=== PATIENT | female | born 1970 | race African-American/Black ===

== ENCOUNTER 2017-05-11 14:07 | Inpatient (IN) | payer OTHER, MEDICAID ==
[~2017-05-11] VITALS: Ht 162.6 cm; Wt 80.6 kg
[~2017-05-11 14:07] MED LIST: ALBU2TAB4; AMLO5TAB2; CLON0.3T; DIAZ-104; HYDR-1421; INSLANTI; PRED5PAK8; PROZAC; QUET50TA; TRAM50TA2; TRAZ50TA2; [UNRECOGNIZED DRUG - OTHER]
[2017-05-11] MEDS ORDERED: PANTOPRAZOLE 40 MG/10 ML VIAL IV STA (14:36)
[2017-05-11] MEDS ORDERED: SODIUM CHLORIDE 0.9% 1,000 ML IVB ONE (14:36)
[2017-05-11] MEDS ORDERED: MORPHINE SULF INJ 2 MG/ML SYRINGE 1ML IV ONE ×2 (14:45→17:45)
[2017-05-11 15:09] LABS: Basophils # (auto) 0 uL; Basophils % (auto) 0.4 % (0.0-2.0); Eosinophils # (auto) 0 uL; Eosinophils % (auto) 0.1 % (0.0-7.0); Hematocrit 43.4 % (36.0-46.0); Hemoglobin 14.6 g/dL (12.2-16.2); Lymphocytes # (auto) 0.8 uL; Lymphocytes % (auto) 6.6 % (10.0-50.0); Mean Corpuscular Hemoglobin 30.1 pg (28.0-32.0); Mean Corpuscular Hgb Conc. 33.6 g/dL (32.0-36.0); Mean Corpuscular Volume 89.8 fL (80.0-100.0); Mean Platelet Volume 7.4 fL (6.9-10.8); Monocytes # (auto) 0.5 uL; Neutrophils # (auto) 10.3 uL; Neutrophils % (auto) 88.9 % (37.0-80.0); Platelet Count (auto) 267 10^3/uL (140-450); White Blood Cell 11.6 10^3/uL (4.4-10.8)
[2017-05-11 15:29] LABS: Albumin 4.3 g/dL (3.4-5.0); Alkaline Phosphatase 43 U/L (45-117); Amylase 78 U/L (25-115); Anion Gap 9 (5-15); Aspartate Aminotransferase 11 U/L (15-37); BUN/Creatinine Ratio 13.5; Bilirubin, Total 1.5 mg/dL (0.2-1.0); Blood Urea Nitrogen 13 mg/dL (7-18); Calcium 8.9 mg/dL (8.5-10.1); Carbon Dioxide 24 mmol/L (21-32); Chloride 102 mmol/L (98-107); GFR African American 80 mL/min; GFR Non-African American 66 mL/min; Glucose 124 mg/dL (74-106); Magnesium 1.8 mg/dL (1.6-2.6); Potassium 3.3 mmol/L (3.5-5.1); Sodium 135 mmol/L (136-145); Total Protein 8.3 g/dL (6.4-8.2)
[2017-05-11] MEDS ORDERED: POTASSIUM CHL 10% (20 MEQ/15ML) 15ml ORAL SOLN PO ONE (16:15)
[2017-05-11] MEDS ORDERED: cefTRIAXone 1GM/10ml IVPUSH 10 ML IV ONE ×2 (16:15→17:00)
[2017-05-11] MEDS ORDERED: ACETAMINOPHEN 500 MG TAB PO PRN (17:00)
[2017-05-11] MEDS ORDERED: TEMAZEPAM 15 MG CAP PO PRN (17:00)
[2017-05-11] MEDS ORDERED: LORazepam 0.5 MG TAB PO PRN (17:00)
[2017-05-11] MEDS ORDERED: MORPHINE SULF INJ 2 MG/ML SYRINGE 1ML IV PRN (17:00)
[2017-05-11] MEDS ORDERED: NITROGLYCERIN 0.4 MG SL TAB SL PRN (17:00)
[2017-05-11] MEDS ORDERED: LABETALOL HCL 5 MG/ML ML 20ML VIAL IV PRN ×3 (17:00)
[2017-05-11] MEDS ORDERED: DEXTROSE (50%) 50ML SYRG IV PRN (17:00)
[2017-05-11] MEDS ORDERED: cloNIDine HCL 0.1 MG TAB PO ONE (17:00)
[2017-05-11] MEDS: PROMETHAZINE HCL 25 MG/ML 1ML IV PRN ×2 (17:20→22:15)
[2017-05-11] MEDS: FAMOTIDINE (10MG/ML) 2ML VL IV SCH (17:20)
[2017-05-11] MEDS: HYDROcodone-ACET 5/325MG TAB PO PRN ×2 (17:27→22:19)
[2017-05-11 17:45] LABS: Urine Bilirubin Negative (Negative); Urine Blood 1+ /uL (Negative); Urine Color Yellow (Yellow); Urine Glucose 2+ mg/dL (Normal); Urine Ketone Negative (Negative); Urine Mucus FEW (None Seen); Urine Nitrite Negative (Negative); Urine RBC 3 /hpf (0 - 4); Urine Squamous Epithelial Cell FEW /hpf (<5); Urine Urobilinogen Normal (Negative)
[2017-05-11] MEDS: InsuLIN REG 1unit/0.01ml Soln (100units/ml) SC SCH (18:00)
[2017-05-11] MEDS: ACCU-CHEK COMFORT CURVE STRIP VI SCH (18:28)
[2017-05-11 21:30] VITALS: BP 110/62
[2017-05-11 22:00] VITALS: BP 110/62
[2017-05-11] MEDS: cloNIDine HCL 0.1 MG TAB PO SCH (22:00)
[2017-05-11] MEDS: DIAZEPAM 5 MG TAB PO SCH (22:25)
[2017-05-11] MEDS: QUEtiapine FUMARATE 25 MG TAB PO SCH (22:25)
[2017-05-11] MEDS: metroNIDAZOLE 500MG/100ML 100 ML IV SCH (22:27)
[2017-05-12] MEDS: traZODone HCL 50 MG TAB PO SCH (01:03)
[2017-05-12] MEDS ORDERED: MORPHINE SULFATE 4 MG/ML SYRG ONE (03:03)
[2017-05-12] MEDS: PROMETHAZINE HCL 25 MG/ML 1ML IV PRN ×5 (03:09→22:16)
[2017-05-12] MEDS: MORPHINE SULF INJ 2 MG/ML SYRINGE 1ML IV PRN ×5 (03:20→22:16)
[2017-05-12] MEDS: FAMOTIDINE (10MG/ML) 2ML VL IV SCH (05:34)
[2017-05-12] MEDS: cloNIDine HCL 0.1 MG TAB PO SCH ×3 (05:37→22:12)
[2017-05-12] MEDS: InsuLIN REG 1unit/0.01ml Soln (100units/ml) SC SCH ×4 (05:37→17:54)
[2017-05-12] MEDS: metroNIDAZOLE 500MG/100ML 100 ML IV SCH ×3 (05:37→22:11)
[2017-05-12] MEDS: ACCU-CHEK COMFORT CURVE STRIP VI SCH ×4 (05:38→17:54)
[2017-05-12 05:40] LABS: Basophils # (auto) 0 uL; Basophils % (auto) 0.5 % (0.0-2.0); Eosinophils # (auto) 0 uL; Eosinophils % (auto) 0.4 % (0.0-7.0); Lymphocytes # (auto) 2.4 uL; Mean Corpuscular Hemoglobin 30.2 pg (28.0-32.0); Mean Corpuscular Hgb Conc. 33.5 g/dL (32.0-36.0); Mean Corpuscular Volume 90.4 fL (80.0-100.0); Mean Platelet Volume 7.7 fL (6.9-10.8); Monocytes # (auto) 0.8 uL; Monocytes % (auto) 9.3 % (0.0-12.0); Neutrophils # (auto) 5.1 uL; Neutrophils % (auto) 60.8 % (37.0-80.0); Nucleated Red Blood Cells % 0.1 %; Platelet Count (auto) 255 10^3/uL (140-450); Red Cell Distribution Width 14.9 % (11.8-14.3); White Blood Cell 8.4 10^3/uL (4.4-10.8)
[2017-05-12 06:00] VITALS: BP 105/71
[2017-05-12 06:11] LABS: Potassium 3.8 mmol/L (3.5-5.1)
[2017-05-12 06:19] LABS: Albumin 3.5 g/dL (3.4-5.0); Bilirubin, Total 0.8 mg/dL (0.2-1.0); Calcium 8.3 mg/dL (8.5-10.1); Total Protein 7.1 g/dL (6.4-8.2)
[2017-05-12] MEDS: amLODIPine BESYLATE 5 MG TAB PO SCH (07:00)
[2017-05-12] MEDS: HYDROcodone-ACET 5/325MG TAB PO PRN ×3 (08:00→20:37)
[2017-05-12 08:27] VITALS: BP 109/61
[2017-05-12] MEDS: cefTRIAXone 1GM/10ml IVPUSH 10 ML IV SCH (09:06)
[2017-05-12] MEDS: FLUoxetine HCL 20 MG CAP PO SCH (09:21)
[2017-05-12] MEDS: DIAZEPAM 5 MG TAB PO SCH ×2 (09:21→22:13)
[2017-05-12 12:35] VITALS: BP 124/76
[2017-05-12] MEDS ORDERED: PANTOPRAZOLE 40 MG TAB PO ONE (15:00)
[2017-05-12 16:24] VITALS: BP 125/65
[2017-05-12 20:00] VITALS: BP 146/82
[2017-05-12 21:56] VITALS: BP 146/82
[2017-05-12] MEDS: QUEtiapine FUMARATE 25 MG TAB PO SCH (22:13)
[2017-05-12] MEDS: PANTOPRAZOLE 40 MG TAB PO SCH (22:13)
[2017-05-13] MEDS: traZODone HCL 50 MG TAB PO SCH ×2 (00:20→21:51)
[2017-05-13] MEDS: ACCU-CHEK COMFORT CURVE STRIP VI SCH ×3 (00:23→12:06)
[2017-05-13] MEDS: PROMETHAZINE HCL 25 MG/ML 1ML IV PRN ×5 (03:02→20:36)
[2017-05-13] MEDS: MORPHINE SULF INJ 2 MG/ML SYRINGE 1ML IV PRN ×5 (03:08→20:36)
[2017-05-13 04:59] VITALS: BP 106/61
[2017-05-13] MEDS: metroNIDAZOLE 500MG/100ML 100 ML IV SCH ×2 (05:56→14:00)
[2017-05-13] MEDS: cloNIDine HCL 0.1 MG TAB PO SCH ×3 (05:56→22:00)
[2017-05-13] MEDS: InsuLIN REG 1unit/0.01ml Soln (100units/ml) SC SCH ×3 (06:00→12:00)
[2017-05-13 06:03] LABS: Basophils # (auto) 0 uL; Basophils % (auto) 0.7 % (0.0-2.0); Eosinophils # (auto) 0.1 uL; Eosinophils % (auto) 1.1 % (0.0-7.0); Hematocrit 35.8 % (36.0-46.0); Lymphocytes # (auto) 3.2 uL; Lymphocytes % (auto) 49.6 % (10.0-50.0); Mean Corpuscular Hgb Conc. 33.5 g/dL (32.0-36.0); Mean Corpuscular Volume 89.6 fL (80.0-100.0); Mean Platelet Volume 7.4 fL (6.9-10.8); Monocytes # (auto) 0.8 uL; Monocytes % (auto) 11.7 % (0.0-12.0); Neutrophils # (auto) 2.4 uL; Neutrophils % (auto) 36.9 % (37.0-80.0); Platelet Count (auto) 218 10^3/uL (140-450); Red Cell Distribution Width 14.8 % (11.8-14.3); White Blood Cell 6.5 10^3/uL (4.4-10.8)
[2017-05-13 06:18] LABS: BUN/Creatinine Ratio 14.1; Calcium 8.2 mg/dL (8.5-10.1); Potassium 3.4 mmol/L (3.5-5.1)
[2017-05-13] MEDS: HYDROcodone-ACET 5/325MG TAB PO PRN ×2 (06:20→13:50)
[2017-05-13] MEDS: amLODIPine BESYLATE 5 MG TAB PO SCH (06:32)
[2017-05-13] MEDS ORDERED: MORPHINE SULFATE 4 MG/ML SYRG ONE (07:47)
[2017-05-13 08:30] VITALS: BP 108/62
[2017-05-13] MEDS: DIAZEPAM 5 MG TAB PO SCH ×2 (09:17→21:51)
[2017-05-13] MEDS: cefTRIAXone 1GM/10ml IVPUSH 10 ML IV SCH (09:17)
[2017-05-13] MEDS: PANTOPRAZOLE 40 MG TAB PO SCH ×2 (09:17→21:51)
[2017-05-13] MEDS: FLUoxetine HCL 20 MG CAP PO SCH (09:17)
[2017-05-13 12:42] VITALS: BP 110/68
[2017-05-13] MEDS ORDERED: CARI-277 PO (14:51)
[2017-05-13] MEDS ORDERED: HYDR-4683 PO (14:51)
[2017-05-13] MEDS ORDERED: LISI10TA6 PO (14:51)
[2017-05-13] MEDS ORDERED: ALUMSUS OR (14:51)
[2017-05-13] MEDS ORDERED: MORP-110 PO (14:51)
[2017-05-13] MEDS ORDERED: INSUINJ2 SC ×2 (14:51)
[2017-05-13] MEDS ORDERED: DIAZ2TAB PO (14:51)
[2017-05-13 16:52] VITALS: BP 110/62
[2017-05-13] MEDS: QUEtiapine FUMARATE 25 MG TAB PO SCH (21:51)
[2017-05-13 22:00] VITALS: BP 123/71
[2017-05-14] MEDS: PROMETHAZINE HCL 25 MG/ML 1ML IV PRN ×6 (01:02→21:18)
[2017-05-14] MEDS: MORPHINE SULF INJ 2 MG/ML SYRINGE 1ML IV PRN ×7 (01:03→21:19)
[2017-05-14] MEDS: HYDROcodone-ACET 5/325MG TAB PO PRN ×3 (02:57→18:37)
[2017-05-14 05:00] VITALS: BP 138/68
[2017-05-14] MEDS: cloNIDine HCL 0.1 MG TAB PO SCH ×3 (06:00→22:10)
[2017-05-14] MEDS: amLODIPine BESYLATE 5 MG TAB PO SCH (06:40)
[2017-05-14] MEDS: DIAZEPAM 5 MG TAB PO SCH ×2 (09:56→22:09)
[2017-05-14] MEDS: FLUoxetine HCL 20 MG CAP PO SCH (09:56)
[2017-05-14] MEDS: PANTOPRAZOLE 40 MG TAB PO SCH ×2 (09:56→22:11)
[2017-05-14 10:14] VITALS: BP 133/62
[2017-05-14 12:52] VITALS: BP 129/78
[2017-05-14] MEDS: CARISOPRODOL 350 MG TAB PO PRN ×2 (13:23→23:39)
[2017-05-14] MEDS ORDERED: SIMV10TA73 PO (13:39)
[2017-05-14 17:21] VITALS: BP 145/79
[2017-05-14 19:27] VITALS: BP 145/79
[2017-05-14 20:00] VITALS: BP 140/85
[2017-05-14] MEDS ORDERED: ATORVASTATIN 20 MG TAB PO SCH (22:00)
[2017-05-14] MEDS: traZODone HCL 50 MG TAB PO SCH (22:10)
[2017-05-14] MEDS: QUEtiapine FUMARATE 25 MG TAB PO SCH (22:11)
[2017-05-15] MEDS: HYDROcodone-ACET 5/325MG TAB PO PRN ×3 (00:40→08:52)
[2017-05-15] MEDS: MORPHINE SULF INJ 2 MG/ML SYRINGE 1ML IV PRN ×2 (02:48→07:00)
[2017-05-15] MEDS: PROMETHAZINE HCL 25 MG/ML 1ML IV PRN ×2 (02:48→06:59)
[2017-05-15 05:00] VITALS: BP 127/51
[2017-05-15] MEDS: cloNIDine HCL 0.1 MG TAB PO SCH ×2 (06:00→13:34)
[2017-05-15] MEDS: ALBUTEROL SULF 2.5 MG/0.5ML(0.5%) NEB SOLN NEB PRN ×2 (06:43→11:29)
[2017-05-15] MEDS: amLODIPine BESYLATE 5 MG TAB PO SCH (06:44)
[2017-05-15 06:52] LABS: INR 1.15 (0.9-1.15); Partial Thromboplastin Time 26.2 sec (22.64-33.71); Prothrombin Time 12.6 sec (9.37-12.3)
[2017-05-15] MEDS ORDERED: LIDOCAINE VISCOUS 2% 15ML UD ONE (08:39)
[2017-05-15] MEDS ORDERED: diphenhdrAMINE HCL 50 MG/1 ML VL ONE (08:39)
[2017-05-15] MEDS ORDERED: SODIUM CHLORIDE LOCK 10 ML ONE (08:39)
[2017-05-15 09:00] VITALS: BP_SYST 102; BP_SYST 134; BP_DIAS 49; BP_DIAS 83
[2017-05-15] MEDS: PANTOPRAZOLE 40 MG TAB PO SCH (10:00)
[2017-05-15] MEDS: MIDAZOLAM HCL 5 MG/ML-1ML VIAL ONE ×2 (10:06→10:09)
[2017-05-15] MEDS: fentaNYL CITRATE 100 MCG/2 ML VL ONE ×2 (10:06→10:09)
[2017-05-15] MEDS: FLUoxetine HCL 20 MG CAP PO SCH (11:24)
[2017-05-15] MEDS: DIAZEPAM 5 MG TAB PO SCH (11:24)
[2017-05-15 12:49] VITALS: BP 114/69
[2017-05-15 13:00] VITALS: BP 114/69
[2017-05-15 13:15] VITALS: BP 114/69
[2017-05-15] MEDS ORDERED: METOCLOPRAMIDE HCL 5MG/ml INJ 2ml VIAL IV SCH (14:00)
== END 2017-05-15 15:18 | disposition home or self-care (01) | DRG 74 ==
LOC: EDBD 14:07 → ER 14:20 → TELE 14:21 → TELE-WESTW 21:15 → WEST WING 05-13 15:30
PROVIDERS: ADMIT Internal Medicine; ATTEND Family Medicine
PROC: 0DJ08ZZ Inspection of Upper Intestinal Tract, Via Natural or Artificial Opening Endoscopic (ICD-10-PCS; principal; 2017-05-15 10:03)
DX: E11.43 Type 2 diabetes mellitus with diabetic autonomic (poly)neuropathy (principal); E87.1 Hypo-osmolality and hyponatremia; K46.9 Unspecified abdominal hernia without obstruction or gangrene; K31.84 Gastroparesis; E78.00 Pure hypercholesterolemia, unspecified; D72.829 Elevated white blood cell count, unspecified; I16.0 Hypertensive urgency; E86.0 Dehydration; E87.6 Hypokalemia; F41.9 Anxiety disorder, unspecified; I10 Essential (primary) hypertension; F32.9 Major depressive disorder, single episode, unspecified; M54.9 Dorsalgia, unspecified; G89.29 Other chronic pain; F17.210 Nicotine dependence, cigarettes, uncomplicated; F12.90 Cannabis use, unspecified, uncomplicated; I70.0 Atherosclerosis of aorta; K21.9 Gastro-esophageal reflux disease without esophagitis; E78.5 Hyperlipidemia, unspecified; J45.909 Unspecified asthma, uncomplicated; Z72.89 Other problems related to lifestyle; Z83.3 Family history of diabetes mellitus; Z88.5 Allergy status to narcotic agent; Z82.49 Family history of ischemic heart disease and other diseases of the circulatory system
CPT/HCPCS: 36415; 43235; 71010; 74176; 80048; 80053; 80307; 80320; 81001; 82150; 82962; 83036; 83690; 83735; 84484; 84702; 85025; 85610; 85652; 85730; 86141; 87493; 94640; 96361; 96365; 96375; 99291; C9113; J2250; J3490

== ENCOUNTER 2017-06-09 11:56 | Emergency (ER) | payer OTHER, MEDICAID ==
[~2017-06-09] VITALS: Ht 162.6 cm; Wt 82.6 kg
[~2017-06-09 11:56] MED LIST changes: +ALUMSUS OR; -AMLO5TAB2; +CARI-277 PO; -CLON0.3T; -DIAZ-104; +DIAZ2TAB PO; +HYDR-4683 PO; +INSUINJ2 SC; +LISI10TA6 PO; +MORP-110 PO; -PRED5PAK8; -PROZAC; +SIMV10TA73 PO; -TRAM50TA2; -[UNRECOGNIZED DRUG - OTHER]
[2017-06-09 12:36] VITALS: BP 143/86
== END 2017-06-09 13:11 | disposition home or self-care (01) ==
LOC: ER 11:56
DX: I10 Essential (primary) hypertension (principal); G89.29 Other chronic pain; M54.5 Low back pain; E11.9 Type 2 diabetes mellitus without complications; E78.5 Hyperlipidemia, unspecified; F17.210 Nicotine dependence, cigarettes, uncomplicated; F12.10 Cannabis abuse, uncomplicated; F15.10 Other stimulant abuse, uncomplicated; Z79.4 Long term (current) use of insulin; Z76.0 Encounter for issue of repeat prescription; Z88.6 Allergy status to analgesic agent

== ENCOUNTER 2017-06-12 12:10 | Emergency (ER) | payer OTHER, MEDICAID ==
[2017-06-12] MEDS ORDERED: cloNIDine HCL 0.1 MG TAB ONE (12:21)
[2017-06-12] MEDS ORDERED: cloNIDine HCL 0.1 MG TAB PO ONE ×2 (12:30→16:15)
[2017-06-12 13:19] LABS: Basophils # (auto) 0.1 uL; Basophils % (auto) 0.9 % (0.0-2.0); Eosinophils # (auto) 0 uL; Hematocrit 46.1 % (36.0-46.0); Hemoglobin 15.4 g/dL (12.2-16.2); Lymphocytes # (auto) 1.7 uL; Lymphocytes % (auto) 12.1 % (10.0-50.0); Mean Corpuscular Hgb Conc. 33.5 g/dL (32.0-36.0); Mean Corpuscular Volume 89.6 fL (80.0-100.0); Monocytes # (auto) 0.4 uL; Neutrophils # (auto) 11.5 uL; Platelet Count (auto) 336 10^3/uL (140-450); Red Blood Cells 5.14 10^6/uL (4.0-5.20); White Blood Cell 13.7 10^3/uL (4.4-10.8)
[2017-06-12] MEDS ORDERED: SODIUM CHLORIDE 0.9% 1,000 ML IV ONE ×2 (13:34)
[2017-06-12] MEDS ORDERED: cefTRIAXone 1GM/10ml IVPUSH 10 ML IV ONE (13:45)
[2017-06-12 13:50] LABS: Albumin 4.7 g/dL (3.4-5.0); Bilirubin, Total 0.8 mg/dL (0.2-1.0); Calcium 9.3 mg/dL (8.5-10.1); Potassium 3.6 mmol/L (3.5-5.1); Total Protein 9.3 g/dL (6.4-8.2)
[2017-06-12] MEDS ORDERED: ONDANSETRON HCL 4 MG/2 ML VIAL IV ONE (16:00)
[2017-06-12 16:02] VITALS: BP 192/105
[2017-06-12] MEDS ORDERED: HYDROcodone-ACET 10/325MG TAB PO ONE (16:15)
== END 2017-06-12 16:45 | disposition home or self-care (01) ==
LOC: EDBD 12:10 → ER 12:10
DX: K52.9 Noninfective gastroenteritis and colitis, unspecified (principal); K43.9 Ventral hernia without obstruction or gangrene; E11.9 Type 2 diabetes mellitus without complications; I10 Essential (primary) hypertension; E78.5 Hyperlipidemia, unspecified; F17.210 Nicotine dependence, cigarettes, uncomplicated; F12.10 Cannabis abuse, uncomplicated; F15.10 Other stimulant abuse, uncomplicated
CPT/HCPCS: 36415; 74176; 80053; 84702; 85025; 87040; 96361; 96374; 96375; 99285; J2405; J7030

== ENCOUNTER 2017-06-13 16:29 | Emergency (ER) | payer OTHER, MEDICAID ==
[~2017-06-13] VITALS: Ht 162.6 cm; Wt 79.4 kg
[2017-06-13 16:56] VITALS: BP 183/108
== END 2017-06-13 23:23 | disposition home or self-care (01) ==
LOC: ER 16:29
DX: I10 Essential (primary) hypertension (principal); R11.2 Nausea with vomiting, unspecified; E11.9 Type 2 diabetes mellitus without complications; E78.5 Hyperlipidemia, unspecified; F17.210 Nicotine dependence, cigarettes, uncomplicated; Z88.6 Allergy status to analgesic agent

== ENCOUNTER 2017-08-28 13:34 | Inpatient (IN) | payer OTHER, MEDICAID ==
[~2017-08-28] VITALS: Ht 162.6 cm; Wt 84.3 kg
[2017-08-28] MEDS ORDERED: PANTOPRAZOLE 40 MG/10 ML VIAL IV ONE ×2 (14:15→17:00)
[2017-08-28] MEDS ORDERED: SODIUM CHLORIDE 0.9% 1,000 ML IV ONE (14:15)
[2017-08-28 15:05] LABS: Basophils # (auto) 0.1 uL; Basophils % (auto) 0.5 % (0.0-2.0); Eosinophils # (auto) 0 uL; Hematocrit 50.5 % (36.0-46.0); Lymphocytes # (auto) 2.4 uL; Lymphocytes % (auto) 17.2 % (10.0-50.0); Mean Corpuscular Hemoglobin 30.4 pg (28.0-32.0); Mean Corpuscular Hgb Conc. 33.8 g/dL (32.0-36.0); Mean Corpuscular Volume 89.9 fL (80.0-100.0); Monocytes # (auto) 1.3 uL; Monocytes % (auto) 9.2 % (0.0-12.0); Neutrophils % (auto) 73.1 % (37.0-80.0); Nucleated Red Blood Cells % 0.1 %; Platelet Count (auto) 317 10^3/uL (140-450); Red Blood Cells 5.61 10^6/uL (4.0-5.20); Red Cell Distribution Width 14.1 % (11.8-14.3); White Blood Cell 13.7 10^3/uL (4.4-10.8)
[2017-08-28] MEDS ORDERED: ONDANSETRON HCL 4 MG/2 ML VIAL ONE (15:24)
[2017-08-28] MEDS ORDERED: ONDANSETRON HCL 4 MG/2 ML VIAL IV ONE (15:30)
[2017-08-28 15:31] LABS: Albumin 4.3 g/dL (3.4-5.0); BUN/Creatinine Ratio 10.2; Bilirubin, Total 1.5 mg/dL (0.2-1.0); Calcium 9.1 mg/dL (8.5-10.1); Potassium 3.3 mmol/L (3.5-5.1); Total Protein 8.8 g/dL (6.4-8.2)
[2017-08-28] MEDS ORDERED: POTASSIUM CHL 20 Meq TABLET PO ONE (16:00)
[2017-08-28] MEDS ORDERED: PROCHLORPERAZINE EDISYLATE 5 MG/ML 2ML VIAL IV ONE (16:15)
[2017-08-28] MEDS ORDERED: MORPHINE SULFATE 4 MG/ML SYR/VIAL IV ONE (16:15)
[2017-08-28] MEDS ORDERED: cloNIDine HCL 0.1 MG TAB PO ONE (16:15)
[2017-08-28 16:19] LABS: Urine Bacteria MANY /hpf (None Seen); Urine Blood 2+ /uL (Negative); Urine WBC 43 /hpf (0 - 5)
[2017-08-28 16:25] LABS: Alcohol, Urine < 3.0 mg/dL (0-5); Amphetamine Screen, Urine NEGATIVE (NEGATIVE); Barbiturate Scree,Urine NEGATIVE (NEGATIVE); Benzodiazephine Screen, Urine POSITIVE (NEGATIVE); Cannabinoid Screen, Urine POSITIVE (NEGATIVE); Cocaine Screen, Urine NEGATIVE (NEGATIVE); Phencyclidine Screen, Urine NEGATIVE (NEGATIVE)
[2017-08-28] MEDS ORDERED: CARISOPRODOL 350 MG TAB PO PRN (16:45)
[2017-08-28] MEDS ORDERED: ACETAMINOPHEN 325 MG TAB PO PRN (16:45)
[2017-08-28] MEDS ORDERED: TEMAZEPAM 15 MG CAP PO PRN (16:45)
[2017-08-28] MEDS ORDERED: SODIUM CHLORIDE 0.9% 2,000 ML IV ONE (16:45)
[2017-08-28] MEDS ORDERED: MORPHINE SULFATE 4 MG/ML SYR/VIAL IV PRN (16:45)
[2017-08-28] MEDS ORDERED: NITROGLYCERIN 0.4 MG SL TAB SL PRN (16:45)
[2017-08-28 16:58] LABS: Opiate Scree,Urine POSITIVE (NEGATIVE)
[2017-08-28] MEDS ORDERED: cefTRIAXone 1GM/10ml IVPUSH 10 ML IV ONE (17:00)
[2017-08-28 17:45] VITALS: BP 115/92
[2017-08-28] MEDS ORDERED: LABETALOL HCL 5 MG/ML ML 20ML VIAL IV PRN (20:15)
[2017-08-28] MEDS: SODIUM CHLORIDE 0.9% 1,000 ML IV SCH (20:25)
[2017-08-28] MEDS: DIAZEPAM 2 MG TAB PO PRN (20:26)
[2017-08-28 21:37] VITALS: BP 110/81
[2017-08-28] MEDS: traZODone HCL 50 MG TAB PO SCH (22:00)
[2017-08-28] MEDS: metroNIDAZOLE 500MG/100ML 100 ML IV SCH (22:02)
[2017-08-28] MEDS: ATORVASTATIN 20 MG TAB PO SCH (22:04)
[2017-08-28] MEDS: QUEtiapine FUMARATE 25 MG TAB PO SCH (22:05)
[2017-08-28] MEDS: MORPHINE SULF 30 mg ER tab PO SCH (22:05)
[2017-08-28] MEDS: ONDANSETRON HCL 4 MG/2 ML VIAL IV PRN (22:28)
[2017-08-28] MEDS: INSULIN NPH Isophane (HUMAN) 1unit/0.01ml Susp(100units/ml) SC SCH (22:44)
[2017-08-29] MEDS: ALBUTEROL SULF 2.5 MG/0.5ML(0.5%) NEB SOLN NEB SCH ×3 (01:34→11:38)
[2017-08-29] MEDS: ONDANSETRON HCL 4 MG/2 ML VIAL IV PRN ×4 (04:12→22:22)
[2017-08-29] MEDS: DIAZEPAM 2 MG TAB PO PRN (04:14)
[2017-08-29] MEDS: SODIUM CHLORIDE 0.9% 1,000 ML IV SCH (04:26)
[2017-08-29 05:34] VITALS: BP 110/77
[2017-08-29 05:40] LABS: Basophils # (auto) 0.1 uL; Basophils % (auto) 0.9 % (0.0-2.0); Eosinophils # (auto) 0 uL; Eosinophils % (auto) 0.3 % (0.0-7.0); Hematocrit 45.3 % (36.0-46.0); Hemoglobin 15.4 g/dL (12.2-16.2); Lymphocytes # (auto) 4.2 uL; Lymphocytes % (auto) 39.8 % (10.0-50.0); Mean Corpuscular Hemoglobin 30.6 pg (28.0-32.0); Mean Corpuscular Volume 90.2 fL (80.0-100.0); Neutrophils # (auto) 5.1 uL; Nucleated Red Blood Cells % 0.1 %; Platelet Count (auto) 271 10^3/uL (140-450); Red Blood Cells 5.03 10^6/uL (4.0-5.20); White Blood Cell 10.4 10^3/uL (4.4-10.8)
[2017-08-29 05:45] LABS: Albumin 3.4 g/dL (3.4-5.0); BUN/Creatinine Ratio 11.1; Bilirubin, Total 1.2 mg/dL (0.2-1.0); Calcium 8.1 mg/dL (8.5-10.1); Potassium 3.3 mmol/L (3.5-5.1); Total Protein 6.8 g/dL (6.4-8.2)
[2017-08-29] MEDS: metroNIDAZOLE 500MG/100ML 100 ML IV SCH ×3 (06:50→22:05)
[2017-08-29] MEDS: INSULIN NPH Isophane (HUMAN) 1unit/0.01ml Susp(100units/ml) SC SCH ×2 (07:05→22:00)
[2017-08-29 08:55] VITALS: BP 110/77
[2017-08-29 09:00] VITALS: BP 118/62
[2017-08-29] MEDS: MORPHINE SULF 30 mg ER tab PO SCH ×2 (09:06→22:06)
[2017-08-29] MEDS: MULTIPLE VITAMIN TAB PO SCH (09:06)
[2017-08-29] MEDS: cefTRIAXone 1GM/10ml IVPUSH 10 ML IV SCH (09:06)
[2017-08-29] MEDS: QUEtiapine FUMARATE 25 MG TAB PO SCH ×2 (09:07→22:07)
[2017-08-29] MEDS: LISINOPRIL 10 MG TAB PO SCH (09:08)
[2017-08-29] MEDS ORDERED: PANTOPRAZOLE 40 MG/10 ML VIAL IV SCH (10:00)
[2017-08-29] MEDS ORDERED: FAMOTIDINE 20 MG TAB PO SCH (10:00)
[2017-08-29] MEDS ORDERED: SOD CHL 0.9%/ KCL 40MEQ 1,000 ML IV ONE (12:00)
[2017-08-29 13:00] VITALS: BP 114/76
[2017-08-29] MEDS: HYDROcodone-ACET 5/325MG TAB PO PRN ×3 (13:47→23:20)
[2017-08-29] MEDS: METOCLOPRAMIDE HCL 10 MG TAB PO SCH ×2 (14:33→22:06)
[2017-08-29] MEDS: PANTOPRAZOLE 40 MG TAB PO SCH ×2 (14:33→22:07)
[2017-08-29 17:00] VITALS: BP_SYST 117; BP_SYST 121; BP_DIAS 76
[2017-08-29] MEDS ORDERED: ALBUTEROL SULF 2.5 MG/0.5ML(0.5%) NEB SOLN NEB PRN (18:00)
[2017-08-29] MEDS: ATORVASTATIN 20 MG TAB PO SCH (22:06)
[2017-08-29] MEDS: traZODone HCL 50 MG TAB PO SCH (22:06)
[2017-08-30] MEDS: ONDANSETRON HCL 4 MG/2 ML VIAL IV PRN ×2 (04:45→10:05)
[2017-08-30] MEDS: HYDROcodone-ACET 5/325MG TAB PO PRN (04:45)
[2017-08-30] MEDS: metroNIDAZOLE 500MG/100ML 100 ML IV SCH ×2 (06:17→14:00)
[2017-08-30] MEDS: INSULIN NPH Isophane (HUMAN) 1unit/0.01ml Susp(100units/ml) SC SCH (06:42)
[2017-08-30] MEDS ORDERED: METO10TA3 PO (08:58)
[2017-08-30] MEDS ORDERED: PANT40T PO (08:58)
[2017-08-30 09:00] VITALS: BP 127/66
[2017-08-30] MEDS: METOCLOPRAMIDE HCL 10 MG TAB PO SCH (09:59)
[2017-08-30] MEDS: MORPHINE SULF 30 mg ER tab PO SCH (09:59)
[2017-08-30] MEDS: MULTIPLE VITAMIN TAB PO SCH (10:00)
[2017-08-30] MEDS: QUEtiapine FUMARATE 25 MG TAB PO SCH (10:00)
[2017-08-30] MEDS: PANTOPRAZOLE 40 MG TAB PO SCH (10:00)
[2017-08-30] MEDS: LISINOPRIL 10 MG TAB PO SCH (10:01)
[2017-08-30] MEDS: cefTRIAXone 1GM/10ml IVPUSH 10 ML IV SCH (10:05)
[2017-08-30 13:00] VITALS: BP 132/70
[2017-08-30] MEDS ORDERED: metroNIDAZOLE 500 MG TAB PO ONE (13:45)
[2017-08-30 15:04] VITALS: BP 132/70
== END 2017-08-30 16:55 | disposition home or self-care (01) | DRG 73 ==
LOC: ER 13:34 → OVERFLOW 13:35 → TELE-WESTW 17:44 → WEST WING 08-29 12:19
PROVIDERS: ADMIT Internal Medicine; ATTEND Internal Medicine
DX: E11.43 Type 2 diabetes mellitus with diabetic autonomic (poly)neuropathy (principal); N17.0 Acute kidney failure with tubular necrosis; E11.21 Type 2 diabetes mellitus with diabetic nephropathy; D75.1 Secondary polycythemia; E11.22 Type 2 diabetes mellitus with diabetic chronic kidney disease; E11.65 Type 2 diabetes mellitus with hyperglycemia; E87.1 Hypo-osmolality and hyponatremia; N39.0 Urinary tract infection, site not specified; F11.20 Opioid dependence, uncomplicated; K52.9 Noninfective gastroenteritis and colitis, unspecified; K31.84 Gastroparesis; E78.5 Hyperlipidemia, unspecified; E86.0 Dehydration; E87.6 Hypokalemia; F17.210 Nicotine dependence, cigarettes, uncomplicated; F32.9 Major depressive disorder, single episode, unspecified; G89.29 Other chronic pain; I12.9 Hypertensive chronic kidney disease with stage 1 through stage 4 chronic kidney disease, or unspecified chronic kidney disease; K21.9 Gastro-esophageal reflux disease without esophagitis; N18.3 Chronic kidney disease, stage 3 (moderate); F12.90 Cannabis use, unspecified, uncomplicated; Z83.3 Family history of diabetes mellitus; Z88.5 Allergy status to narcotic agent; Z82.49 Family history of ischemic heart disease and other diseases of the circulatory system
CPT/HCPCS: 36415; 71045; 74176; 76705; 80053; 80307; 80320; 81001; 82962; 83690; 85025; 87045; 87086; 87493; 87899; 93005; 94640; 94761; 96361; 96374; 96375; C9113; J1815; J2405; J3490

== ENCOUNTER 2017-10-17 11:12 | Inpatient (IN) | payer OTHER, MEDICAID ==
[~2017-10-17] VITALS: Ht 162.6 cm; Wt 83.7 kg
[~2017-10-17 11:12] MED LIST changes: -HYDR-1421; +METO10TA3 PO; +PANT40T PO
[2017-10-17] MEDS ORDERED: SODIUM CHLORIDE 0.9% 1,000 ML IVB ONE (11:36)
[2017-10-17] MEDS ORDERED: PANTOPRAZOLE 40 MG/10 ML VIAL IV STA (11:36)
[2017-10-17] MEDS ORDERED: METOCLOPRAMIDE HCL 5MG/ml INJ 2ml VIAL IV ONE (11:45)
[2017-10-17] MEDS ORDERED: MORPHINE SULFATE 4 MG/ML SYR/VIAL IV ONE (11:45)
[2017-10-17 13:23] LABS: Basophils # (auto) 0.1 uL; Basophils % (auto) 0.8 % (0.0-2.0); Eosinophils # (auto) 0 uL; Hematocrit 47.2 % (36.0-46.0); Hemoglobin 15.8 g/dL (12.2-16.2); Lymphocytes # (auto) 2.5 uL; Mean Corpuscular Hemoglobin 29.9 pg (28.0-32.0); Mean Corpuscular Hgb Conc. 33.5 g/dL (32.0-36.0); Mean Corpuscular Volume 89.2 fL (80.0-100.0); Monocytes # (auto) 0.4 uL; Monocytes % (auto) 3.6 % (0.0-12.0); Neutrophils # (auto) 7.8 uL; Neutrophils % (auto) 72.6 % (37.0-80.0); Nucleated Red Blood Cells % 0.1 %; Platelet Count (auto) 293 10^3/uL (140-450); Red Cell Distribution Width 14.5 % (11.8-14.3); White Blood Cell 10.8 10^3/uL (4.4-10.8)
[2017-10-17 13:35] LABS: Alanine Aminotransferase 28 U/L (13-56); Albumin 4.5 g/dL (3.4-5.0); Amylase 46 U/L (25-115); Anion Gap 11 (5-15); Aspartate Aminotransferase 9 U/L (15-37); BUN/Creatinine Ratio 11.3; Blood Urea Nitrogen 11 mg/dL (7-18); Calcium 9.5 mg/dL (8.5-10.1); Carbon Dioxide 24 mmol/L (21-32); Chloride 104 mmol/L (98-107); GFR African American 79 mL/min; GFR Non-African American 65 mL/min; Glucose 211 mg/dL (74-106); Lipase 119 U/L (73-393); Potassium 3.1 mmol/L (3.5-5.1); Sodium 139 mmol/L (136-145)
[2017-10-17 13:40] LABS: Alkaline Phosphatase 59 U/L (45-117); Bilirubin, Total 0.7 mg/dL (0.2-1.0); Total Protein 9.1 g/dL (6.4-8.2)
[2017-10-17] MEDS ORDERED: DEXTROSE (50%) 50ML SYRG IV PRN (16:00)
[2017-10-17] MEDS: SODIUM CHLORIDE 0.9% 1,000 ML IV SCH (16:10)
[2017-10-17] MEDS ORDERED: DIAZEPAM 2 MG TAB PO PRN (16:15)
[2017-10-17] MEDS ORDERED: PANTOPRAZOLE 40 MG TAB PO ONE (16:15)
[2017-10-17] MEDS ORDERED: ALUM & MAG HYDROX-SIMETH LIQ(MAALOX) 30 ML PO PRN (16:15)
[2017-10-17] MEDS ORDERED: ACETAMINOPHEN 325 MG TAB PO PRN (16:15)
[2017-10-17] MEDS ORDERED: POTASSIUM CHLORIDE 8 MEQ TAB PO ONE (16:15)
[2017-10-17] MEDS: METOCLOPRAMIDE HCL 10 MG TAB PO SCH ×2 (17:00→22:09)
[2017-10-17] MEDS: InsuLIN REG 1unit/0.01ml Soln (100units/ml) SC SCH ×2 (17:00→22:00)
[2017-10-17] MEDS: ACCU-CHEK COMFORT CURVE STRIP VI SCH ×2 (17:00→22:11)
[2017-10-17] MEDS: ALBUTEROL SULF 2 MG/5ML ORAL SYRUP PO SCH (18:00)
[2017-10-17] MEDS: ONDANSETRON HCL 4 MG/2 ML VIAL IV PRN ×3 (18:54→21:26)
[2017-10-17 21:33] VITALS: BP 198/94
[2017-10-17 22:03] VITALS: BP 198/94
[2017-10-17] MEDS: QUEtiapine FUMARATE 25 MG TAB PO SCH (22:08)
[2017-10-17] MEDS: ATORVASTATIN 20 MG TAB PO SCH (22:08)
[2017-10-17] MEDS: MORPHINE SULF 30 mg ER tab PO SCH (22:09)
[2017-10-17] MEDS: CARISOPRODOL 350 MG TAB PO SCH (22:09)
[2017-10-17] MEDS: FAMOTIDINE 20 MG TAB PO SCH (22:10)
[2017-10-17] MEDS: HYDROcodone-ACET 5/325MG TAB PO PRN (22:10)
[2017-10-17] MEDS: traZODone HCL 50 MG TAB PO SCH (22:10)
[2017-10-17] MEDS: INSULIN LANTUS (GLARGINE) 1 /0.01ml (100units/ml) SC SCH (22:10)
[2017-10-18] MEDS: SODIUM CHLORIDE 0.9% 1,000 ML IV SCH ×3 (00:30→17:10)
[2017-10-18] MEDS: ONDANSETRON HCL 4 MG/2 ML VIAL IV PRN ×3 (02:24→22:01)
[2017-10-18] MEDS: TEMAZEPAM 15 MG CAP PO PRN (02:24)
[2017-10-18] MEDS: HYDROcodone-ACET 5/325MG TAB PO PRN ×4 (02:24→22:01)
[2017-10-18 05:04] VITALS: BP 126/71
[2017-10-18 05:56] LABS: Basophils # (auto) 0 uL; Basophils % (auto) 0.3 % (0.0-2.0); Eosinophils # (auto) 0 uL; Hematocrit 40.9 % (36.0-46.0); Hemoglobin 13.8 g/dL (12.2-16.2); Lymphocytes # (auto) 2.2 uL; Lymphocytes % (auto) 14.9 % (10.0-50.0); Mean Corpuscular Hemoglobin 29.8 pg (28.0-32.0); Mean Corpuscular Hgb Conc. 33.9 g/dL (32.0-36.0); Monocytes # (auto) 1.1 uL; Monocytes % (auto) 7.7 % (0.0-12.0); Neutrophils # (auto) 11.3 uL; Neutrophils % (auto) 77.1 % (37.0-80.0); Platelet Count (auto) 238 10^3/uL (140-450); Red Blood Cells 4.64 10^6/uL (4.0-5.20); Red Cell Distribution Width 14.3 % (11.8-14.3); White Blood Cell 14.7 10^3/uL (4.4-10.8)
[2017-10-18 06:07] LABS: BUN/Creatinine Ratio 9.9; Calcium 8.5 mg/dL (8.5-10.1); Potassium 3.3 mmol/L (3.5-5.1); Total Protein 7.5 g/dL (6.4-8.2)
[2017-10-18] MEDS: ACCU-CHEK COMFORT CURVE STRIP VI SCH ×4 (06:18→22:01)
[2017-10-18] MEDS: INSULIN LANTUS (GLARGINE) 1 /0.01ml (100units/ml) SC SCH ×2 (06:18→22:01)
[2017-10-18] MEDS: InsuLIN REG 1unit/0.01ml Soln (100units/ml) SC SCH ×4 (06:19→22:00)
[2017-10-18] MEDS: ALBUTEROL SULF 2 MG/5ML ORAL SYRUP PO SCH ×4 (06:22→18:05)
[2017-10-18] MEDS: METOCLOPRAMIDE HCL 10 MG TAB PO SCH ×4 (06:22→22:00)
[2017-10-18 07:46] VITALS: BP 157/70
[2017-10-18 08:00] VITALS: BP 157/70
[2017-10-18] MEDS: CARISOPRODOL 350 MG TAB PO SCH ×2 (09:54→22:00)
[2017-10-18] MEDS: LISINOPRIL 10 MG TAB PO SCH (09:54)
[2017-10-18] MEDS: PANTOPRAZOLE 40 MG TAB PO SCH (09:55)
[2017-10-18] MEDS: FAMOTIDINE 20 MG TAB PO SCH (09:55)
[2017-10-18] MEDS: MULTIPLE VITAMIN TAB PO SCH (09:55)
[2017-10-18] MEDS: MORPHINE SULF 30 mg ER tab PO SCH ×2 (09:56→22:00)
[2017-10-18] MEDS ORDERED: cloNIDine HCL 0.1 MG TAB PO PRN (10:30)
[2017-10-18] MEDS ORDERED: POTASSIUM CHLORIDE 8 MEQ TAB PO ONE (10:30)
[2017-10-18 11:56] VITALS: BP 134/65
[2017-10-18 16:25] VITALS: BP 116/61
[2017-10-18 21:47] VITALS: BP 162/84
[2017-10-18] MEDS: traZODone HCL 50 MG TAB PO SCH (22:00)
[2017-10-18] MEDS: QUEtiapine FUMARATE 25 MG TAB PO SCH (22:00)
[2017-10-18] MEDS: ATORVASTATIN 20 MG TAB PO SCH (22:00)
[2017-10-19] MEDS: SODIUM CHLORIDE 0.9% 1,000 ML IV SCH ×4 (01:30→23:56)
[2017-10-19] MEDS: TEMAZEPAM 15 MG CAP PO PRN (02:19)
[2017-10-19] MEDS: HYDROcodone-ACET 5/325MG TAB PO PRN ×5 (02:25→21:45)
[2017-10-19 05:15] VITALS: BP 115/60
[2017-10-19 06:06] LABS: Basophils # (auto) 0 uL; Basophils % (auto) 0.5 % (0.0-2.0); Eosinophils # (auto) 0 uL; Eosinophils % (auto) 0.2 % (0.0-7.0); Hematocrit 39.9 % (36.0-46.0); Hemoglobin 13.2 g/dL (12.2-16.2); Lymphocytes % (auto) 48.7 % (10.0-50.0); Mean Corpuscular Hemoglobin 29.9 pg (28.0-32.0); Mean Corpuscular Hgb Conc. 33.2 g/dL (32.0-36.0); Mean Corpuscular Volume 90.2 fL (80.0-100.0); Monocytes # (auto) 0.7 uL; Monocytes % (auto) 8.4 % (0.0-12.0); Neutrophils # (auto) 3.4 uL; Neutrophils % (auto) 42.2 % (37.0-80.0); Nucleated Red Blood Cells % 0.1 %; Platelet Count (auto) 212 10^3/uL (140-450); Red Blood Cells 4.42 10^6/uL (4.0-5.20); Red Cell Distribution Width 14.5 % (11.8-14.3); White Blood Cell 8.1 10^3/uL (4.4-10.8)
[2017-10-19] MEDS: METOCLOPRAMIDE HCL 10 MG TAB PO SCH ×4 (06:20→21:46)
[2017-10-19] MEDS: InsuLIN REG 1unit/0.01ml Soln (100units/ml) SC SCH ×4 (06:20→21:32)
[2017-10-19] MEDS: ALBUTEROL SULF 2 MG/5ML ORAL SYRUP PO SCH ×5 (06:20→23:56)
[2017-10-19] MEDS: INSULIN LANTUS (GLARGINE) 1 /0.01ml (100units/ml) SC SCH ×2 (06:20→21:31)
[2017-10-19] MEDS: ACCU-CHEK COMFORT CURVE STRIP VI SCH ×4 (06:21→21:31)
[2017-10-19 06:22] LABS: BUN/Creatinine Ratio 6.3; Calcium 8.2 mg/dL (8.5-10.1)
[2017-10-19 07:22] LABS: Potassium 2.9 mmol/L (3.5-5.1)
[2017-10-19 08:00] VITALS: BP 136/78
[2017-10-19] MEDS: CARISOPRODOL 350 MG TAB PO SCH ×2 (10:32→21:46)
[2017-10-19] MEDS: MULTIPLE VITAMIN TAB PO SCH (10:32)
[2017-10-19] MEDS: LISINOPRIL 10 MG TAB PO SCH (10:33)
[2017-10-19] MEDS: PANTOPRAZOLE 40 MG TAB PO SCH (10:34)
[2017-10-19] MEDS: MORPHINE SULF 30 mg ER tab PO SCH ×2 (10:35→21:46)
[2017-10-19] MEDS ORDERED: POTASSIUM CHL 20 Meq TABLET PO ONE (11:30)
[2017-10-19 12:00] VITALS: BP 145/80
[2017-10-19 17:30] VITALS: BP 169/75
[2017-10-19] MEDS: ONDANSETRON HCL 4 MG/2 ML VIAL IV PRN ×2 (17:38→21:44)
[2017-10-19] MEDS: ATORVASTATIN 20 MG TAB PO SCH (21:44)
[2017-10-19] MEDS: traZODone HCL 50 MG TAB PO SCH (21:45)
[2017-10-19] MEDS: QUEtiapine FUMARATE 25 MG TAB PO SCH (21:46)
[2017-10-19 22:00] VITALS: BP 185/98
[2017-10-20] MEDS: HYDROcodone-ACET 5/325MG TAB PO PRN (04:03)
[2017-10-20 05:00] VITALS: BP 130/72
[2017-10-20] MEDS: ALBUTEROL SULF 2 MG/5ML ORAL SYRUP PO SCH ×2 (06:20→12:00)
[2017-10-20] MEDS: METOCLOPRAMIDE HCL 10 MG TAB PO SCH ×2 (06:20→12:00)
[2017-10-20] MEDS: ACCU-CHEK COMFORT CURVE STRIP VI SCH ×2 (06:26→12:14)
[2017-10-20] MEDS: INSULIN LANTUS (GLARGINE) 1 /0.01ml (100units/ml) SC SCH (06:26)
[2017-10-20] MEDS: InsuLIN REG 1unit/0.01ml Soln (100units/ml) SC SCH ×2 (06:27→11:30)
[2017-10-20 06:40] LABS: Potassium 3.4 mmol/L (3.5-5.1)
[2017-10-20 06:47] LABS: BUN/Creatinine Ratio 5.3; Calcium 8.4 mg/dL (8.5-10.1); Magnesium 2.2 mg/dL (1.6-2.6)
[2017-10-20 08:00] VITALS: BP 142/88
[2017-10-20] MEDS ORDERED: POTASSIUM CHL 20 Meq TABLET PO ONE (09:45)
[2017-10-20] MEDS: MULTIPLE VITAMIN TAB PO SCH (09:56)
[2017-10-20] MEDS: LISINOPRIL 10 MG TAB PO SCH (10:00)
[2017-10-20] MEDS: CARISOPRODOL 350 MG TAB PO SCH (10:00)
[2017-10-20] MEDS: PANTOPRAZOLE 40 MG TAB PO SCH (10:00)
[2017-10-20] MEDS: MORPHINE SULF 30 mg ER tab PO SCH (10:01)
[2017-10-20] MEDS: ONDANSETRON HCL 4 MG/2 ML VIAL IV PRN (10:02)
[2017-10-20] MEDS: SODIUM CHLORIDE 0.9% 1,000 ML IV SCH (10:05)
[2017-10-20] MEDS ORDERED: ONDA4TAB5 PO (11:17)
[2017-10-20] MEDS ORDERED: METO10TA3 PO (11:17)
[2017-10-20 12:00] VITALS: BP 169/94
== END 2017-10-20 14:42 | disposition home or self-care (01) | DRG 73 ==
LOC: ER 11:14 → OVERFLOW 11:15 → CENTRAL 20:24
PROVIDERS: ADMIT Internal Medicine; ATTEND Internal Medicine
DX: E11.43 Type 2 diabetes mellitus with diabetic autonomic (poly)neuropathy (principal); N17.0 Acute kidney failure with tubular necrosis; E87.1 Hypo-osmolality and hyponatremia; K31.84 Gastroparesis; E78.5 Hyperlipidemia, unspecified; E86.0 Dehydration; J45.909 Unspecified asthma, uncomplicated; F32.9 Major depressive disorder, single episode, unspecified; K21.9 Gastro-esophageal reflux disease without esophagitis; F41.9 Anxiety disorder, unspecified; E87.6 Hypokalemia; N18.2 Chronic kidney disease, stage 2 (mild); E11.21 Type 2 diabetes mellitus with diabetic nephropathy; E11.22 Type 2 diabetes mellitus with diabetic chronic kidney disease; F17.210 Nicotine dependence, cigarettes, uncomplicated; I12.9 Hypertensive chronic kidney disease with stage 1 through stage 4 chronic kidney disease, or unspecified chronic kidney disease; Z79.4 Long term (current) use of insulin; Z83.3 Family history of diabetes mellitus; Z79.899 Other long term (current) drug therapy; Z88.5 Allergy status to narcotic agent; Z82.49 Family history of ischemic heart disease and other diseases of the circulatory system
CPT/HCPCS: 36415; 76705; 80048; 80053; 82150; 82962; 83036; 83690; 83735; 84132; 84484; 85025; 93005; 94761; 96361; 96374; J1815; J2405